=== PATIENT | female | born 1955 | race Caucasian/White ===

== ENCOUNTER 2021-11-12 11:10 | Emergency (ER) | payer OTHER, MEDICAID, SELFPAY ==
[2021-11-12 11:33] VITALS: BP 151/97; PULSE 74; RESP 16; TEMP 36.5; O2SAT 96; BMI 27.4
[2021-11-12 12:31] VITALS: PULSE 65; O2SAT 95
[2021-11-12 12:33] VITALS: BP 140/82; PULSE 65; RESP 19; O2SAT 97
[2021-11-12 13:00] VITALS: BP 129/79; PULSE 64; RESP 18; O2SAT 96
[2021-11-12 13:04] LABS: Add Manual Diff / Slide Review NO; Basophils Absolute Auto 0 /uL (0-100); Basophils Percent Auto 0.5 % (0-2); Eosinophils Absolute Auto 100 /uL (0-450); Eosinophils Percent Auto 0.7 % (2-4); Hematocrit 41.2 % (36-46); Hemoglobin 13.8 g/dL (12.0-16.0); Lymphocytes Absolute Auto 1700 /uL (1100-4500); Lymphocytes Percent Auto 22.2 % (25-40); Mean Corpuscular HGB Conc 33.6 % (30-36); Mean Corpuscular Hemoglobin 30.8 PG (26-34); Mean Corpuscular Volume 91.7 fL (80-100); Monocytes Absolute Auto 900 /uL (0-900); Monocytes Percent Auto 11.5 % (3-14); Neutrophils Absolute Auto 5000 /uL (1500-7000); Neutrophils Percent Auto 65.1 % (50-75); Platelet Count 212 X10^3/uL (150-400); Red Blood Cell Count 4.49 X10^6/uL (4.0-5.2); Red Cell Distribution Width 14.1 % (11.6-14.8); White Blood Cell Count 7.6 X10^3/uL (4.5-11.0)
[2021-11-12 13:10] LABS: INR 1.1 (0.9-1.3); Prothrombin Time 12.7 SECONDS (10.1-12.7)
[2021-11-12 13:12] LABS: PTT Partial Thromboplastin Tim 31 SECONDS (26.4-36.2)
--- NOTE | 2021-11-12 13:12 | ED_ITS ---
HPI - GI Bleed General Chief complaint: GI Bleed Stated complaint: blood in poop Time Seen by Provider: 11/12/21 12:55 Source: patient Mode of arrival: Ambulatory Limitations: no limitations History of Present Illness HPI Narrative: This is a 66-year-old female comes emergency department with complaint of blood on the toilet paper when she wiped. Patient states she has had blood in her stool in the past she had a colonoscopy a month ago had several polyps removed she got a letter from her director of partner marketing stating that none of the polyps showed malignancy and to follow-up in 3 years for repeat scope. She has not had any abdominal abdominal pain. No fevers or chills. No nausea or vomiting. She denies any major changes with bowel movements no black or bloody stools otherwise. She did see any blood in the stool itself today just when she wiped and has not appreciated other episodes. She is on pain medications but no anticoagulants she takes meloxicam, narcotic pain medication, Neurontin or gabapentin. She has not had any prior intra-abdominal surgeries. Denies allergies. Review of Systems Review of Systems ROS Unobtainable: All systems reviewed & are unremarkable except as noted in HPI and below Exam Narrative Exam Narrative: GENERAL: Alert and oriented x three, female in mild distress HEENT: Head normocephalic, atraumatic, EOMI, pupils reactive, face symmetric, moist mucous membranes NECK: Supple, full range of motion CARDIOVASCULAR: Regular rate and rhythm without murmurs, rubs or gallops. RESPIRATORY: Breath sounds equal bilaterally, no wheezes rales or rhonchi. ABDOMEN: Soft, nontender. Normoactive bowel sounds all 4 quadrants. No guarding or rebound, rigidity, no mass, on rectal no bright red blood, patient does have a small hemorrhoid with no active bleeding, no mass, patient does have hard stool in the rectal vault, stool occult is faintly positive at one spot but no other changes. : No CVA tenderness EXTREMITIES: Normal range of motion, no clubbing or edema. Neurovascularly intact NEUROLOGICAL: Cranial nerves II through XII grossly intact. Moving all extremities SKIN: Warm, dry, no petechiae, no rashes or lesions. Initial Vital Signs Initial Vital Signs: Vital Signs Temperature 97.7 F 11/12/21 11:33 Pulse Rate 74 11/12/21 11:33 Respiratory Rate 16 11/12/21 11:33 Blood Pressure 151/97 H 11/12/21 11:33 Pulse Oximetry 96 11/12/21 11:33 Oxygen Delivery Method 11/12/21 11:33 Course Orders Ordered: ED Orders 11/12/21 11:37 Type and Screen Stat 11/12/21 12:30 Complete Blood Count AUTO DIFF Stat Comprehensive Metabolic Panel Stat Partial Thromboplastin Time Stat Prothrombin Time INR Stat Vital Signs Vital signs: Vital Signs - 8 hr 11/12/21 11:33 11/12/21 12:31 11/12/21 12:33 Temperature 97.7 F Pulse Rate 74 65 Respiratory Rate 16 Blood Pressure 151/97 H 140/82 Pulse Oximetry 96 95 Oxygen Delivery Method Room Air 11/12/21 12:33 Temperature Pulse Rate 65 Respiratory Rate 19 Blood Pressure Pulse Oximetry 97 Oxygen Delivery Method MDM - GI Bleed Lab Data Result diagrams: 11/12/21 12:30 11/12/21 12:30 Labs: Lab Results 11/12/21 11/12/21 11/12/21 Range/Units 12:30 12:30 12:30 WBC 7.6 (4.5-11.0) X10^3/uL RBC 4.49 (4.0-5.2) X10^6/uL Hgb 13.8 (12.0-16.0) g/dL Hct 41.2 (36-46) % MCV 91.7 (80-100) fL MCH 30.8 (26-34) PG MCHC 33.6 (30-36) % RDW 14.1 (11.6-14.8) % Plt Count 212 (150-400) X10^3/uL Neut % (Auto) 65.1 (50-75) % Lymph % (Auto) 22.2 L (25-40) % Marshall % (Auto) 11.5 (3-14) % Eos % (Auto) 0.7 L (2-4) % Baso % (Auto) 0.5 (0-2) % Neut # (Auto) 5000 (9572-4286) /uL Lymph # (Auto) 1700 (7853-9385) /uL Marshall # (Auto) 900 (0-900) /uL Eos # (Auto) 100 (0-450) /uL Baso # (Auto) 0 (0-100) /uL PT 12.7 (10.1-12.7) SECONDS INR 1.1 (0.9-1.3) APTT 31 (26.4-36.2) SECONDS Sodium 139 (137-145) mmol/L Potassium 4.7 (3.4-5.1) mmol/L Chloride 107 (98-107) mmol/L Carbon Dioxide 25 (22-32) mmol/L BUN 14 (7-17) mg/dL Creatinine 0.78 (0.52-1.04) mg/dL Estimated GFR > 60 (>60) mL/min BUN/Creatinine Ratio 17.9 (6-22) Glucose 94 (80-110) mg/dL Calcium 9.1 (8.4-10.2) mg/dL Total Bilirubin 1.2 (0.2-1.3) mg/dL AST 34 (14-36) IU/L ALT 16 (<35) IU/L Alkaline Phosphatase 35 L (38-126) U/L Total Protein 7.8 (6.3-8.2) g/dL Albumin 4.6 (3.5-5.0) g/dL Globulin 3.2 (1.7-4.1) g/dL Albumin/Globulin Ratio 1.4 (1.0-2.8) Point of Care Testing Stool Occult Blood Positive MDM Narrative Medical decision making narrative: This is a 66-year-old female comes emergency department with complaint of bright red blood while wiping 1 time today, patient had bleeding before had a colonoscopy a month ago which had polyps but no other acute changes. Her labs, coags and hemoglobin are all appropriate. She is asked to follow up with primary care if she has recurrent episodes she may need re-evaluation sooner than 3 years which she is currently scheduled for her next colonoscopy. She does not have any other high risk factors and with noted hemorrhoid on exam would not CT her today. Discharge Plan Departure Patient Disposition: Home Clinical Impression: Bright red rectal bleeding Instructions: DI for Rectal Bleeding Activity Restrictions/Additional Instructions: Follow-up with your physician or with the individual who performed your colonoscopy if you are having persistent symptoms over the next several weeks. You do have a small hemorrhoid on exam this could be the source side make sure to take a stool softener such as Colace once daily if you are having hard stools and make sure to drink plenty of water Your labs today are reassuring with normal hemoglobin, coags and no other major changes noted. Please return for recheck if you are having increasing bleeding, lightheadedness or passing out, chest pain or shortness of breath, new abdominal pain, persistent diarrhea or other new or concerning symptoms Referrals: Precious Nicolas [Primary Care Provider] - Visit Report Forms: Patient Portal/API
[2021-11-12 13:25] LABS: Alanine Aminotransferase 16 IU/L (<35); Albumin 4.6 g/dL (3.5-5.0); Albumin Globulin Ratio 1.4 (1.0-2.8); BUN Creatinine Ratio 17.9 (6-22); Bilirubin Total 1.2 mg/dL (0.2-1.3); Blood Urea Nitrogen 14 mg/dL (7-17); Calcium 9.1 mg/dL (8.4-10.2); Carbon Dioxide 25 mmol/L (22-32); Chloride 107 mmol/L (98-107); Estimated Glomerular Filt Rate > 60 mL/min (>60); Globulin 3.2 g/dL (1.7-4.1); Glucose 94 mg/dL (80-110); Sodium 139 mmol/L (137-145); Total Protein 7.8 g/dL (6.3-8.2)
[2021-11-12 13:27] LABS: Alkaline Phosphatase 35 U/L (38-126); HEMOLYSIS 85 (0-50); Potassium 4.7 mmol/L (3.4-5.1)
[2021-11-12 13:28] LABS: Aspartate Aminotransferase 34 IU/L (14-36)
[2021-11-12 13:30] VITALS: PULSE 66; RESP 20; O2SAT 96
[2021-11-12 13:31] VITALS: BP 133/69; PULSE 70; RESP 20; O2SAT 96
== END 2021-11-12 13:45 | disposition home or self-care (01) ==
PROVIDERS: Emergency Provider Emergency Medicine; PCP Student in an Organized Health Care Education/Training Program
DX: K62.5 Hemorrhage of anus and rectum (principal)
CPT/HCPCS: 36415; 80053; 82272; 85025; 85610; 85730; 99283